=== PATIENT | male | born 1945 | race Caucasian/White ===

== ENCOUNTER 2021-04-16 07:48 | Observation (INO) | payer MEDICARE, BC ==
[2021-04-16] VITALS (9 sets, daily range): BP systolic 132–178; BP diastolic 69–88; PULSE 51–78; TEMP 98.1–98.5
[~2021-04-16] VITALS: Ht 177.8 cm; Wt 59.6 kg
--- NOTE | 2021-04-16 08:53 | NUR ---
The patient answered yes to suicide risk questions 1-4. The nurse spoke with the patient regarding the a support syromi he has in place and people he can reach out to when this thoughts come. He said his is "an amazing support" and is "always there for him". He also stated that he has dealt with depression all of his adult life and tried various depression medication which only increased his suicidal thoughts and so they were stopped over the years. He is currently working with his doctor to try some new medications and is currently taking trazadone and celexa. Lulu is pediatric social worker notified of his assessment and answers. Dr. Arreguin will also be notified.
[2021-04-16] MEDS ORDERED: VENTOLIN0.09 MG IH (09:29)
[2021-04-16] MEDS ORDERED: DESYREL 50MG50 MG PO (09:29)
[2021-04-16] MEDS ORDERED: CARDURA 8MG TAB8 MG PO (09:31)
[2021-04-16] MEDS ORDERED: CELEXA 20MG20 MG/TAB PO (09:32)
[2021-04-16] MEDS ORDERED: PROSCAR 5MG5 MG PO (09:33)
[2021-04-16] MEDS ORDERED: FOLIC ACID 11 MG/TA1 PO (09:33)
[2021-04-16] MEDS ORDERED: LITHIUM 30300 MG/CAP PO (09:34)
[2021-04-16] MEDS ORDERED: VITAMIN D250 MCG PO (09:35)
[2021-04-16] MEDS ORDERED: [UNRECOGNIZED DRUG - OTHER] PO (09:35)
[2021-04-16] MEDS ORDERED: STRESS FORMULA1 T16 PO (09:38)
[2021-04-16] MEDS ORDERED: MELATONIN5 M1 SL (09:39)
[2021-04-16] MEDS ORDERED: [UNRECOGNIZED DRUG - OTHER] PO (09:40)
[2021-04-16] MEDS ORDERED: MAG-OX 400400 MG/TAB PO (09:40)
[2021-04-16] MEDS ORDERED: [UNRECOGNIZED DRUG - OTHER] PO (09:41)
[2021-04-16] MEDS ORDERED: PYRIDIUM 100MG100 MG PO (11:24)
--- NOTE | 2021-04-16 13:22 | NUR ---
Pt has arrived to the floor from [facility]. He is alert and oriented althoug he states he feels tired. is at bedside. Pt arrived around 1230. Pt is currently complaining of pain in his penis, PRN to be given. CBI running at slow to moderate rate with pink output, no clots noted. Gave pt jello and broth.
--- NOTE | 2021-04-16 15:34 | NUR ---
Patient states that he do not enjoy food because he can not taste it. The last 6 months he has beeing loosing aprox 25 pounds. He has had bladder infections, and depression. He stated having toughts about hurting himself in this time too.
--- NOTE | 2021-04-16 17:30 | NUR ---
CBI continues to run at a fast rate with red output. Dr Arreguin was notified earlier of pt pain, new orders received. Dr Arreguin also in recently to see pt. Reinforced tension, PRN given. Encouraged pt to order something to eat. Pt currently looking at menu
--- NOTE | 2021-04-16 18:03 | NUR ---
Pt still having complaints of pain, pt reports goes for mild to severe. He is currently not able to sit still and is moaning. Levsin given not too long ago, will given PRN Rohith.
--- NOTE | 2021-04-16 18:32 | NUR ---
When going in to give [place], aguillon irrigated. Moderate size clot removed, aguillon draining well and pt started to get some relief. Dinner tray just arrived
--- NOTE | 2021-04-16 18:42 | NUR ---
Patient is resting in bed. He has had constant pain since he came to floor. The pain increased in his bladder and penis. RN Shahrzad flushed the catheter and allow it to drain the fluid that was accumulating and causing the pain. Patient is ok right now. CBI infusing and output still reddish. Shift report will be givven to night nurse.
[2021-04-17] VITALS (7 sets, daily range): BP systolic 97–151; BP diastolic 58–83; PULSE 62–84; TEMP 98–99
--- NOTE | 2021-04-17 11:43 | NUR ---
Sw met with the pt who stated his preference to return home once medically stable. The pt lives at home with his , Pily (ph #[phone]). The pt stated he is independent on all ADLs and does not use any DME. The pt stated he has a DPOA-HC and gave it the nurse when he was admitted. The pt PCP is Marv Howell and gets his medications from [facility] in [place], [place]. The pt has never used HH services before. No other needs stated at this time. Sw to await further recommendations and follow up as needed. D/C: Home w.
--- NOTE | 2021-04-17 13:05 | NUR ---
PATIENT IS ALERT AND ORIENTED X4. PATIENT HAS IV TO THE LEFT FOREARM AND IS RECIEVING CBI. URINE IS RED WITH CLOTS. PATIENT HAS BEEN TAKING PAIN MEDS PRESCRIBED AND IRRIGATING THE CBI FOR PAIN WHICH HE DESCRIBES SPASMS. PATIENT IS WHEEZING AND IS TOLERATING GENERAL DIET. NO FURTHER NEEDS AT THIS. HEAD TO TOE ASSESSMENT COMPLETE. CALL LIGHT WITHIN REACH.
--- NOTE | 2021-04-17 18:04 | NUR ---
PATIENT TOLERATING DIET WELL. PATIENT HAD BOWEL MOVEMENT AND WAS ABLE TO TRANSITION TO THE CHAIR THROUGHOUT THE DAY. CBI IRRIGATION AND PAIN MEDS GIVEN PER ORDERS THROUGHOUT THE DAY TO MANAGE PAIN. PATIENT CONTINUES TO HAVE SPASMS AND HAND IRRIGATION IS REQUIRED TO REMOVE CLOTS.
--- NOTE | 2021-04-17 19:12 | NUR ---
Patient called out in severe pain. Bladder spasm. Irrigated aguillon-no clots noted, but pressure relieved. Patient reports he was in the bathroom & strained to have a BM. Patient anxious. Placed on 2l O2 per request. Bedside report to Kirti WILSON
--- NOTE | 2021-04-17 20:00 | NUR ---
Report received, assumed care for night shift manager. Assessment complete. A&Ox3. Denies nausea/shortness of breath. VS stable. Levsin given at this time for bladder spasms. CBI running at a moderate rate-pink output with no clots noted. Plan of care discussed for this shift to include HS meds/pain control/monitoring CBI. Verbalizes understanding/denies needs. Call light in reach. Will monitor.
--- NOTE | 2021-04-17 21:30 | NUR ---
[place] one tab given for pain in groin/bladder-rating pain 6/10 on pain scale-described as cramping. Will monitor.
[2021-04-18 00:01] VITALS: BP 115/64; PULSE 57; TEMP 97.7
[2021-04-18 04:22] VITALS: BP 132/71; PULSE 60; TEMP 98.2
--- NOTE | 2021-04-18 04:53 | NUR ---
CBI continued through night at a slow to moderate rate with clear pink output. No clots noted. SCDs bilat. Denies current needs. Call light in reach. Will monitor.
--- NOTE | 2021-04-18 06:31 | NUR ---
Called stating "I just got a bunch of clots out." States he pushed on his stomach and massaged to expel clots that might have formed over night. CBI no longer running- states he is now having bladder spasms. Hand irrigated with return of several clots. States he is more comfortable now. WIll monitor.
[2021-04-18 07:39] VITALS: BP 133/80; PULSE 55; TEMP 98
--- NOTE | 2021-04-18 08:10 | NUR ---
rounded. Orders obtained. Ku primed & pulled per orders. Patient first void was urgent & clots noted. Patient going to wear his home briefs. Breakfast ordered. Patient concerned about constipation-MOM given per orders. Patient aware he needs to drink planty of water & going to try & drink less coffee.
[2021-04-18 08:16] LABS: BASO # 0.1 (0.0-0.2); BASO % 0.7 % (0.0-2.0); EOS # 0.2 (0.0-0.7); EOS % 2.1 % (0-4.0); GRAN # 6.1 (1.4-6.5); GRAN % 71.6 % (42.2-75.2); HEMATOCRIT 44.6 % (42.0-52.0); HEMOGLOBIN 14.6 g/dl (13.5-18.0); LYMPH # 0.8 (1.2-3.4); LYMPH % 9.6 % (20.0-51.0); MEAN CELL VOLUME 105 fl (80.0-100.0); MEAN CORPUSCULAR HEMOGLOBIN 34 pg (27.0-31.0); MEAN CORPUSCULAR HGB CONC 33 g/dl (33.0-37.0); MEAN PLATELET VOLUME 9.3 fl (7.4-10.4); MONO # 1.3 (0.1-0.6); MONO % 15.5 % (1.7-9.3); PLATELET COUNT 212 K/mm3 (130-400); RED BLOOD COUNT 4.25 M/mm3 (4.20-5.60); REDCELL DISTRIBUTION WIDTH-CV 14.6 % (11.5-14.5)
--- NOTE | 2021-04-18 11:23 | NUR ---
Patient has completed his 6 bottle routine. Continues to have urgency & frequency, discussed with him that this can be normal. Iv DC. Patient to dress, discharge paperwork completed.
--- NOTE | 2021-04-18 12:36 | NUR ---
All discharge teaching given to patient and his . He completed 6 bottle routine and did very well without troubles. No complaints of pain. Activity and diet restrictions reviewed. Patient sent home with briefs and a urinal in case of accidents due to urgency. He is ready to get home. Patient wheeled out with all belongings. Denies questions or concerns.
== END 2021-04-18 12:43 | disposition home or self-care (01) ==
LOC: SDCO 07:48 → SURG 12:30 → SDCO 04-17 14:03 → SURG 04-17 14:04
PROVIDERS: ADMIT Urology
DX: N40.1 Benign prostatic hyperplasia with lower urinary tract symptoms (principal); R39.14 Feeling of incomplete bladder emptying; R35.1 Nocturia; R33.8 Other retention of urine; R39.12 Poor urinary stream; J43.9 Emphysema, unspecified; E44.0 Moderate protein-calorie malnutrition; R63.4 Abnormal weight loss; F17.210 Nicotine dependence, cigarettes, uncomplicated; F41.9 Anxiety disorder, unspecified; Z79.899 Other long term (current) drug therapy
CPT/HCPCS: OP; G0378; J0690; J1200; J2250; J2405; J2704; J3010; J3480; J7120